=== PATIENT | female | born 1970 | race Two or more races ===

== ENCOUNTER 2023-02-18 23:28 | Emergency (ER) | payer OTHER ==
[~2023-02-18] VITALS: Ht 152.4 cm; Wt 97.7 kg
[2023-02-19] MEDS ORDERED: ACETAMINOPHEN 500 MG TAB PO ONE (02:45)
[2023-02-19 02:51] VITALS: BP 120/73; PULSE 85; RESP 16; TEMP 97.7; O2SAT 95
[2023-02-19] MEDS ORDERED: CYCL-839 PO (04:50)
[2023-02-19] MEDS ORDERED: IBUP1TAB5 PO (04:50)
== END 2023-02-19 05:21 | disposition home or self-care (01) ==
LOC: ER 23:29
DX: S46.812A Strain of other muscles, fascia and tendons at shoulder and upper arm level, left arm, initial encounter (principal); G44.309 Post-traumatic headache, unspecified, not intractable; Y04.2XXA Assault by strike against or bumped into by another person, initial encounter; Y93.89 Activity, other specified; Y92.89 Other specified places as the place of occurrence of the external cause; Y99.8 Other external cause status
CPT/HCPCS: 70450; 73030